=== PATIENT | female | born 1990 | race Caucasian/White ===

== ENCOUNTER 2017-09-03 08:10 | Inpatient (IN) | payer OTHER ==
[2017-09-03] MEDS ORDERED: MISOPROSTOL 200 MCG TAB PO PRN (08:34)
[2017-09-03] MEDS ORDERED: EPSOM SALT 454 GM TP PRN (08:34)
[2017-09-03] MEDS ORDERED: AMMONIA AROMATIC 1 EACH AMP IH PRN (08:34)
[2017-09-03] MEDS ORDERED: OLIVE OIL 118 ML BTL MISC PRN (08:34)
[2017-09-03] MEDS ORDERED: OXYTOCIN 20 UNIT in LR 1,000 ML IV PRN (08:34)
[2017-09-03] MEDS ORDERED: TERBUTALINE SULFATE 1 MG/ML VIAL IV PRN (08:34)
--- NOTE | 2017-09-03 09:02 | PDGENHP ---
History and Physical History and Physical: HPI: Patient is a 26 yo G 1 P 0 that presents to L&D with complaints of regular painful contractions that started at approximately 2:30 a.m. this morning. Baby has been active. She denies leaking fluid or vaginal bleeding. She was seen in the office yesterday and her cervix was essentially closed/thick/-2. She appears very uncomfortable and is jojo every 2 min. EDC: 03/12/18 which is based on LMP: 12/03/16 which is known and consistent with Ultrasound at 7 weeks. 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) Review of Systems: Constitutional: Denies any fever, chills, or fatigue HEENT: denies any visual changes, difficulty swallowing, hearing loss Cardiovascular: Denies any chest pain, palpitations, leg swelling Respiratory: denies any cough, wheezing, or shortness of breathe GI: She is having some nausea, but denies vomiting, diarrhea, constipation : denies any dysuria, urgency, frequency, vaginal bleeding Musculoskeletal: denies any muscle or bone pain Skin: denies any rashes Neuro: denies any headache, seizures, lightheadedness, dizziness, or loss of consciousness Psychiatric: denies any depression, anxiety, or SI/HI thoughts HISTORY: Previous OB history: n/a Past medical history: h/o bifed uvula, hospitalized 2010 after 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, h/o CMV 2006 Past surgical history: wisdom teeth Medications: PNV Allergies (list reaction): Sulfa-anaphylaxis, Keflex-hives LABS: Rh: pos ABS: Neg Rubella: Immune HbsAg: NR HIV: NR VDRL: NR 1hr: 104 GC: Neg Chlamydia: Neg Pap: Normal 12/08 GBS: neg BMI: (prepreg) 27 PHYSICAL EXAM: Constitutional: WN, A&Ox3 HEENT: normocephalic atraumatic, supple Heart: RRR, no murmur Chest: CTA-B Abdomen: Soft, nontender, gravid SVE: 2/80/-2 Extremities: trace edema, negative jamel's sign Neuro: grossly normal Psych: normal affect assessment: Reassuring FHTs, baseline 140s +accels, no decels, moderate variability Contractions: toco q 2-3, palpate moderate Assessment: 1) 26 yo G 1 P 0 with IUP@ 39.1 weeks EGA 2) Spontaneous labor 3) GBS neg 4) Cat 1 FHR tracing 5) Marginal cord insertion Plan: 1) Admit to L&D 2) 500 cc IV fluid bolus 3) CBC, T&S 4) Epidural PRN 5) Activity/diet as tolerated and intermittent monitoring per protocol until epidural placed 6) Anticipate
[2017-09-03] MEDS ORDERED: LIDOCAINE 1% 300 MG/30 ML SDV ONE (09:18)
[2017-09-03] MEDS ORDERED: OXYTOCIN 10 UNIT/ML VIAL ONE ×2 (09:18→15:35)
[2017-09-03] MEDS ORDERED: OLIVE OIL 118 ML BTL ONE (09:19)
[2017-09-03 09:25] LABS: PLATELET COUNT 295 10^3/uL (150-400)
[2017-09-03] MEDS ORDERED: ONDANSETRON 4 MG/2 ML VIAL IVP PRN (10:28)
[2017-09-03] MEDS ORDERED: NALOXONE HCL 0.4 MG/ML INJ IVP PRN (10:38)
--- NOTE | 2017-09-03 10:41 | PREANESOB ---
Obstetric Pre-Anesthesia Info - General Info Proposed Procedure: ENRIQUE : 1 Para: 0 LAURA: 09/09/17 Gestational Age: 39 week(s) and 1 day(s) - Info Status: Full Term FHR Pattern: Reassuring - Labor Status Cervical Dilation per last OB SVE: 3 Indications for Labor Analgesia: Pain Control Labor Epidural: Yes Anesthesia Allergies/Adverse Reactions: Allergy/AdvReac Type Severity Reaction Status Date / Time Sulfa (Sulfonamide Allergy Severe Anaphylaxis Verified 09/03/17 08:34 Antibiotics) cephalexin [From Keflex] Allergy Mild Hives Verified 09/03/17 08:34 Penicillins Allergy Hives Verified 09/03/17 09:05 Visit Medications: Generic Name Dose Route Start Last Admin Trade Name Freq PRN Reason Stop Dose Admin Ammonia (Aromatic Spirit) 1 each 09/03/17 08:34 Ammonia Aromatic IH 09/13/17 08:33 ONCE PRN Fainting Lactated Ringer's 1,000 mls @ 0 mls/hr 09/03/17 08:34 Lr IV 09/04/17 08:33 PRN PRN SEE PROTOCOL CONDITIONS Protocol Per Protocol Oxytocin 20 unit/ Lactated 1,002 mls @ 150 mls/hr 09/03/17 08:34 Ringer's IV PRN PRN Post- bleeding Ibuprofen 600 mg 09/03/17 08:34 Motrin PO 03/02/18 08:33 Q6HRS PRN post , inflammation Magnesium Sulfate 454 gm 09/03/17 08:34 Epsom Salt TP 03/02/18 08:33 Q1H PRN perineal discomfort Misoprostol 800 - 1,000 mcg 09/03/17 08:34 Cytotec PO ONCE PRN Vaginal Atony/Bleeding [place] Oil 118 ml 09/03/17 08:34 Sweet Oil MISC 03/02/18 08:33 ONCE PRN perineal massage Ondansetron HCl 4 mg 09/03/17 10:28 Zofran IVP 03/02/18 10:27 Q4HRS PRN Nausea/Vomiting, Can't Take PO Terbutaline Sulfate 0.25 mg 09/03/17 08:34 Brethine IV 03/02/18 08:33 ONCE PRN Tachysystole Discontinued Medications Generic Name Dose Route Start Last Admin Trade Name Freq PRN Reason Stop Dose Admin Lidocaine HCl Confirm 09/03/17 09:18 Lidocaine Hcl 1% Administered 09/03/17 09:19 Dose 300 mg .ROUTE .STK-MED ONE [place] Oil Confirm 09/03/17 09:19 Sweet Oil Administered 09/03/17 09:20 Dose 118 ml .ROUTE .STK-MED ONE Oxytocin Confirm 09/03/17 09:18 Pitocin Administered 09/03/17 09:19 Dose 40 unit .ROUTE .STK-MED ONE - Vital Signs Height/Weight (Nursing): Height 165.1 cm Weight 83.915 kg Labs: 09/03/17 09:13
[2017-09-03] MEDS ORDERED: fentaNYL 100 MCG/2 ML INJ ONE (10:48)
[2017-09-03] MEDS ORDERED: PHENYLEPHRINE HCL 100 MCG/ML SYR ONE (10:49)
[2017-09-03] MEDS ORDERED: BUPIVACAINE 0.25% 30 ML SDV ONE (10:49)
[2017-09-03] MEDS ORDERED: fentaNYL 200 MCG, BUPIVACAINE 0.5% 20 ML in NS 100 ML EP SCH (11:00)
[2017-09-03] MEDS ORDERED: fentaNYL 2MCG/ML/BUP 0.1% RTU 100 ML EP SCH (11:00)
[2017-09-03] MEDS ORDERED: LR 500 ML IV SCH (11:00)
--- NOTE | 2017-09-03 15:30 | OBPROG ---
Labor Progress Note Assessment/Plan: Assessment: 1) 26 yo G 1 P 0 with IUP@ 39.1 weeks EGA 2) Spontaneous labor 3) GBS neg 4) Cat 2 FHR tracing - baseline 150s, periods of minimal variability and occasional variable deceleration 5) SROM at 1300 - light blood tinged fluid 6) IUPC in place - contraction pattern inadequate- MVUs < 100 7) Cervix 4/90/-1 8) Marginal cord insertion Plan: Will start pitocin augmentation IV fluid bolus Oxygen PRN Monitor EFM closely Anticipate Reviewed strip/POC with Dr. Low 09/03/17 15:31 09/03/17 15:57 09/03/17 16:05 09/03/17 16:13 Subjective/Intrapartum Course: 09/03/17 15:31 Doing well, comfortable with epidural 09/03/17 15:57 Objective: 09/03/17 09:13 Patient ABO/Rh O POSITIVE 09/03/17 09:13 VSS Epidural - comfortable SROM lt blood tinged fluid at 1300 EFM category 2 - periods of minimal variability, occasional mild variable decels IUPC placed - Contractions q 5 min 40mm - inadequate contraction pattern - SVE Dilation (cm): 4 Effacement (%): 90 Station: -1 Membranes: SROM Amniotic Fluid Color: Clear (light blood tinged) - Contraction Pattern Assessment Current Contraction Pattern: Irregular - FHR Assessment [place] FHR (bpm): 155 FHR Pattern Variability: Moderate FHR Category: 2 (intermittent varible decel, intermittment minimal variabilty) - Procedures Non-surgical Procedures: IUPC Oxytocin Orders Assessment - Pre-Induction/Augmentation Assessment Gestational Age: 39 week(s) and 1 day(s) ICD10 Worksheet Patient Problems: Problems Problem Status Onset Acute - ICD10 Problem Qualifiers (1) Qualifiers: Weeks of gestation: 39 weeks Qualified Code(s): Z3A.39 - 39 weeks gestation of
[2017-09-03] MEDS ORDERED: OXYTOCIN 30 UNIT in NS 500 ML IV SCH (19:30)
[2017-09-03] MEDS ORDERED: LR 500 ML IV PRN (19:30)
[2017-09-03] MEDS: LR 1,000 ML IV PRN (20:23)
--- NOTE | 2017-09-03 20:44 | OBPROG ---
Labor Progress Note Assessment/Plan: Assessment: 1) 26 yo G 1 P 0 with IUP@ 39.1 weeks EGA 2) Spontaneous labor with pitocin augmentation 3) GBS neg 4) Cat 2 FHR tracing - FHR baseline 170s, mod variability, intermittent mild variables 5) SROM at 1300 - light blood tinged fluid 6) IUPC in place -MVUs 160-180 7) Cervix 4-5/90/-1 8) Marginal cord insertion Plan: Continue pitocin augmentation IV fluid bolus 500 cc Monitor EFM closely Expect accelerated cervical change now with adequate labor Anticipate Reviewed strip/POC with Dr. Low 09/03/17 15:31 09/03/17 15:57 09/03/17 16:05 09/03/17 16:13 09/03/17 20:39 Subjective/Intrapartum Course: 09/03/17 15:31 Resting at intervals, remains comfortable with epidural 09/03/17 15:57 09/03/17 20:44 Objective: 09/03/17 09:13 Patient ABO/Rh O POSITIVE 09/03/17 09:13 VSS - afebrile, HR 80s Pitocin 13 mu EFM category 2 - baseline 170s, mod variability, intermittent mild variables IUPC: MVUs 160-180 SVE: 4-5/80/-1 - SVE Dilation (cm): 5 Effacement (%): 80 Station: -1 Membranes: SROM Amniotic Fluid Color: Clear (light blood tinged) - Contraction Pattern Assessment Current Contraction Pattern: Regular - FHR Assessment [place] FHR (bpm): 170 FHR Pattern Variability: Moderate FHR Category: 2 (FHT baseline 170s, mod variability, occasional variable decel) - Procedures Non-surgical Procedures: IUPC Oxytocin Orders Assessment - Pre-Induction/Augmentation Assessment Gestational Age: 39 week(s) and 1 day(s) ICD10 Worksheet Patient Problems: Problems Problem Status Onset Acute - ICD10 Problem Qualifiers (1) Qualifiers: Weeks of gestation: 39 weeks Qualified Code(s): Z3A.39 - 39 weeks gestation of
--- NOTE | 2017-09-03 22:43 | OBPROG ---
Labor Progress Note Assessment/Plan: Assessment: 26 y/o @ 39 1/7 wks with arrest of dilation and tachycardia Plan: Pt has not made much cervical change despite adequate labor over the past 4 hours, still about 5 cm FHTs - tachycardia in 170-180's noted, pt is afebrile Discussed proceeding with PCS secondary to arrest of dilation and tachycardia Surgical consents obtained; discussed R/B/A with pt including but not limited to bleeding, infection and damage to surrounding organs Pt understands all risks and wants to proceed with surgery at this time Abx hazard mitigation officer to OR - pt is allergic to PCN, will given Clindamycin SCD's for DVT prophylaxis 09/03/17 22:44 Subjective/Intrapartum Course: 09/03/17 15:31 Resting at intervals, remains comfortable with epidural 09/03/17 15:57 09/03/17 20:44 09/03/17 22:48 Pt comfortable with epidural no complaints. Objective: 09/03/17 09:13 Patient ABO/Rh O POSITIVE 09/03/17 09:13 - SVE Dilation (cm): 5 Effacement (%): 90 Station: -1 Membranes: SROM Amniotic Fluid Color: Clear (light blood tinged) - Contraction Pattern Assessment Current Contraction Pattern: Regular - FHR Assessment [place] FHR (bpm): 170 FHR Pattern Variability: Moderate FHR Category: 2 (intermittent variable decels) - Procedures Non-surgical Procedures: IUPC - AP Antepartum Course: Oxytocin Orders Assessment - Pre-Induction/Augmentation Assessment Gestational Age: 39 week(s) and 1 day(s) ICD10 Worksheet Patient Problems: Problems Problem Status Onset Acute
[2017-09-03] MEDS ORDERED: CLINDAMYCIN 900 MG/DEXTROSE 50 ML IV ONE (22:50)
--- NOTE | 2017-09-03 23:04 | PREANESOB ---
Obstetric Pre-Anesthesia Info - General Info : 1 Para: 0 LAURA: 09/09/17 Gestational Age: 39 week(s) and 1 day(s) - Info Status: Full Term - Labor Status Cervical Dilation per last OB SVE: 5 Station per last OB SVE: -1 Amniotic Fluid Color: Clear (light blood tinged) Indications for Labor Analgesia: Pain Control Indications for Current Section: Arrest of Dilation Labor Epidural: Yes Anesthesia Allergies/Adverse Reactions: Allergy/AdvReac Type Severity Reaction Status Date / Time Sulfa (Sulfonamide Allergy Severe Anaphylaxis Verified 09/03/17 08:34 Antibiotics) cephalexin [From Keflex] Allergy Mild Hives Verified 09/03/17 08:34 Penicillins Allergy Hives Verified 09/03/17 09:05 Visit Medications: Generic Name Dose Route Start Last Admin Trade Name Freq PRN Reason Stop Dose Admin Ammonia (Aromatic Spirit) 1 each 09/03/17 08:34 Ammonia Aromatic IH 09/13/17 08:33 ONCE PRN Fainting Lactated Ringer's 1,000 mls @ 0 mls/hr 09/03/17 08:34 09/03/17 20:23 Lr IV 09/04/17 08:33 1,000 mls PRN PRN Administration SEE PROTOCOL CONDITIONS Protocol Per Protocol Oxytocin 20 unit/ Lactated 1,002 mls @ 150 mls/hr 09/03/17 08:34 Ringer's IV PRN PRN Post- bleeding Lactated Ringer's 500 mls @ 0 mls/hr 09/03/17 11:00 Lr IV 03/02/18 10:59 CONT JANETH As Directed Fentanyl 200 mcg/ Bupivacaine 100 mls @ 0 mls/hr 09/03/17 11:00 09/03/17 21: 30 HCl 20 ml/ Sodium Chloride EP 09/13/17 10:59 100 mls CONT JANETH Administration Protocol As Directed Lactated Ringer's 500 mls @ 500 mls/hr 09/03/17 19:30 Lr IV 09/04/17 19:30 PRN PRN Maternal Hypotension Oxytocin 30 unit/ Sodium 503 mls @ 0 mls/hr 09/03/17 19:30 09/03/17 15:46 Chloride IV 03/02/18 19:29 503 mls CONT JANETH Administration Protocol Per Protocol Clindamycin Phosphate/Dextrose 50 mls @ 100 mls/hr 09/03/17 22:50 Cleocin 900 Mg (Premix) IV 09/03/17 23:19 ONCALL ONE Protocol Clindamycin Phosphate/Dextrose 50 mls @ 100 mls/hr 09/03/17 23:15 Cleocin 600 Mg (Premix) IV 09/03/17 23:44 ONCALL ONE Ibuprofen 600 mg 09/03/17 08:34 Motrin PO 03/02/18 08:33 Q6HRS PRN post , inflammation Magnesium Sulfate 454 gm 09/03/17 08:34 Epsom Salt TP 03/02/18 08:33 Q1H PRN perineal discomfort Misoprostol 800 - 1,000 mcg 09/03/17 08:34 Cytotec PO ONCE PRN Vaginal Atony/Bleeding Naloxone HCl 0.4 mg 09/03/17 10:38 Narcan IVP 03/02/18 10:37 PRN PRN Respiratory depression [place] Oil 118 ml 09/03/17 08:34 Sweet Oil MISC 03/02/18 08:33 ONCE PRN perineal massage Ondansetron HCl 4 mg 09/03/17 10:28 09/03/17 10:50 Zofran IVP 03/02/18 10:27 4 mg Q4HRS PRN Administration Nausea/Vomiting, Can't Take PO Terbutaline Sulfate 0.25 mg 09/03/17 08:34 Brethine IV 03/02/18 08:33 ONCE PRN Tachysystole Discontinued Medications Generic Name Dose Route Start Last Admin Trade Name Freq PRN Reason Stop Dose Admin Bupivacaine HCl Confirm 09/03/17 10:49 Sensorcaine 0.25% Sdv Administered 09/03/17 10:50 Dose 30 ml .ROUTE .STK-MED ONE Fentanyl Confirm 09/03/17 10:48 Sublimaze Administered 09/03/17 10:49 Dose 100 mcg .ROUTE .STK-MED ONE Lidocaine HCl Confirm 09/03/17 09:18 Lidocaine Hcl 1% Administered 09/03/17 09:19 Dose 300 mg .ROUTE .STK-MED ONE [place] Oil Confirm 09/03/17 09:19 Sweet Oil Administered 09/03/17 09:20 Dose 118 ml .ROUTE .STK-MED ONE Oxytocin Confirm 09/03/17 09:18 Pitocin Administered 09/03/17 09:19 Dose 40 unit .ROUTE .STK-MED ONE Oxytocin Confirm 09/03/17 15:35 Pitocin Administered 09/03/17 15:36 Dose 30 unit .ROUTE .STK-MED ONE Phenylephrine HCl Confirm 09/03/17 10:49 Neosynephrine Administered 09/03/17 10:50 Dose 1,000 mcg .ROUTE .STK-MED ONE - Anesthesia History Response to Local Anesthetics: Normal Anesthesia & Operative History: No Prior Problems Family Anesthesia History: Not Applicable - Vital Signs Latest Vital Signs (Nursing): Temp Pulse Resp BP Pulse Ox 37.3 C 92 132/87 H 96 09/03/17 22:46 09/03/17 22:46 09/03/17 22:46 09/03/17 22:46 Height/Weight (Nursing): Height 165.1 cm Weight 83.915 kg - Focused Exam Neck exam: FROM Mallampati Score: Class 2 Mouth exam: normal dental/mouth exam Pulmonary: no respiratory distress Cardiovascular: regular rate and rhythym Labs: 09/03/17 09:13 Patient ABO/Rh O POSITIVE 09/03/17 09:13 - Plan Anesthetic Plan: C/S w/ lidocaine in epidural, backup is general anesthesia Consent Signed and on Chart: Yes Patient/Guardian Understands and Agrees to Plan: Yes
[2017-09-03] MEDS ORDERED: PROPOFOL 200 MG/20 ML VIAL ONE (23:14)
[2017-09-03] MEDS ORDERED: CLINDAMYCIN 600 MG/DEXTROSE 50 ML IV ONE (23:15)
[2017-09-04] MEDS ORDERED: morphINE PF 5 MG/10 ML INJ ONE (00:02)
[2017-09-04] MEDS ORDERED: fentaNYL 100 MCG/2 ML INJ ONE (00:10)
[2017-09-04] MEDS ORDERED: MAGNESIUM HYDROXIDE 30 ML UDCUP PO PRN (00:32)
[2017-09-04] MEDS ORDERED: POLYETHYLENE GLYCOL 3350 17 GM PKT PO PRN (00:32)
[2017-09-04] MEDS ORDERED: DOCUSATE SODIUM 100 MG CAP PO PRN (00:32)
[2017-09-04] MEDS ORDERED: BISACODYL 10 MG SUPP PR PRN (00:32)
[2017-09-04] MEDS ORDERED: PROMETHAZINE HCL 25 MG/ML INJ IVP PRN (00:32)
[2017-09-04] MEDS ORDERED: SIMETHICONE 80 MG TAB CHEW PO PRN (00:32)
[2017-09-04] MEDS ORDERED: LACTULOSE 20 GM/30 ML UDCUP PO PRN (00:32)
--- NOTE | 2017-09-04 00:38 | OBDEL ---
Info Type: Primary Presentation at Delivery: Vertex L&D Analgesia/Anesthesia Type: Epidural GBS+: No Intrapartum Medications: Generic Name Dose Route Start Last Admin Trade Name Freq PRN Reason Stop Dose Admin Lactated Ringer's 1,000 mls @ 0 mls/hr 09/03/17 08:34 09/03/17 20:23 Lr IV 09/04/17 08:33 1,000 mls PRN PRN Administration SEE PROTOCOL CONDITIONS Protocol Per Protocol Fentanyl 200 mcg/ Bupivacaine 100 mls @ 0 mls/hr 09/03/17 11:00 09/03/17 21: 30 HCl 20 ml/ Sodium Chloride EP 09/13/17 10:59 100 mls CONT JANETH Administration Protocol As Directed Oxytocin 30 unit/ Sodium 503 mls @ 0 mls/hr 09/03/17 19:30 09/03/17 15:46 Chloride IV 03/02/18 19:29 503 mls CONT JANETH Administration Protocol Per Protocol Ondansetron HCl 4 mg 09/03/17 10:28 09/03/17 10:50 Zofran IVP 03/02/18 10:27 4 mg Q4HRS PRN Administration Nausea/Vomiting, Can't Take PO Discontinued Medications Generic Name Dose Route Start Last Admin Trade Name Freq PRN Reason Stop Dose Admin Clindamycin Phosphate/Dextrose 50 mls @ 100 mls/hr 09/03/17 23:15 09/03/17 23 :15 Cleocin 600 Mg (Premix) IV 09/03/17 23:44 50 mls ONCALL ONE Administration - Infant Care Provider Application Tester/AIRCRAFT RIVETER: Eula [place] - [facility] Course Intrapartum: 09/03/17 15:31 Resting at intervals, remains comfortable with epidural 09/03/17 15:57 09/03/17 20:44 09/03/17 22:48 Pt comfortable with epidural no complaints. Indications for Delivery: Spontaneous Labor Vaginal Delivery - Labor and Delivery Onset of Contractions Date: 09/03/17 Onset of Contractions Time: 02:30 Amniotic Fluid Color: Clear (light blood tinged) Non-surgical Procedures: IUPC Cord Gases: Cord Gases Cord Blood PCO2 TNP 09/03/17 23:50 Cord Base Excess TNP 09/03/17 23:50 Cord ABG pH TNP 09/03/17 23:50 Cord VBG pH 7.31 (7.20-7.42) 09/03/17 23:50 Operative Report - Delivery Pre-op Diagnoses: IUP at 39 2/7 wks with arrest of dilation and tachycardia Post-op Diagnoses: IUP at 39 2/7 wks with arrest of dilation and tachycardia History of Prior Section: No Nulliparous Prior to Delivery: No Indications for Current Section: Arrest of Dilation, Other (Specify) ( tachycardia) Procedure: Low Transverse Surgeon: Lisy Low Blanching Machine Operator: Shelley Yao Anesthesiologist: Larry France Complications: None Findings: A viable female born at 2350 in cephalic presentation-NOY with compound presentation, with 8 and 9 Apgars weighing 7lb 15oz. Delayed cord clamping x 60 seconds. Cord clamped x 2 and cut. Infant to waiting AIRCRAFT RIVETER. Cord blood and cord gases obtained. Placenta delivered manually intact with 3-vc. No complications. Specimen(s)/Path: Other (Specify) (None) IV Fluid (ml): 1,200 EBL: 800cc UO: 200 cc-clear urine Cord Gases: Cord Gases Cord Blood PCO2 TNP 09/03/17 23:50 Cord Base Excess TNP 09/03/17 23:50 Cord ABG pH TNP 09/03/17 23:50 Cord VBG pH 7.31 (7.20-7.42) 09/03/17 23:50 Data LAURA: 09/09/17 Gestational Age: 39 week(s) and 2 day(s) [place] Delivery Date: 09/04/17 Delivery Time: 23:50 Sex of Infant: Female Weight (gm): 3600.389 g Score (1 Min): 8 Score (5 Min): 9 ICD10 Worksheet Patient Problems: Problems Problem Status Onset Arrest of dilation, delivered, current hospitalization Acute Acute Status post primary low transverse section Acute - ICD10 Problem Qualifiers (1) Arrest of dilation, delivered, current hospitalization (2) Status post primary low transverse section
[2017-09-04] MEDS ORDERED: fentaNYL 100 MCG/2 ML INJ IVP PRN (00:39)
[2017-09-04] MEDS ORDERED: NALOXONE HCL 0.4 MG/ML INJ IVP PRN (00:39)
[2017-09-04] MEDS ORDERED: PHENYLEPHRINE HCL 100 MCG/ML SYR IVP PRN (00:39)
[2017-09-04] MEDS ORDERED: HYDROmorphONE/DILAUDID 2 MG/ML INJ IVP PRN (00:39)
[2017-09-04] MEDS ORDERED: ONDANSETRON 4 MG/2 ML VIAL IVP PRN (00:39)
--- NOTE | 2017-09-04 00:39 | POSTANESTH ---
Post Anesthetic Evaluation Cardiovascular Status: Normal, Stable, Similar to Pre-Op Cond Respiratory Status: Normal, Stable, Similar to Pre-op Cond. Level of Consciousness/Mental Status: Can Participate in Eval, Alert and Oriented Pain Control: Adequate, Prn Tx Ordered Nausea/Vomiting Control: Adequate, Prn Tx Ordered Complications Possibly Related to Anesthesia: None Noted
[2017-09-04] MEDS ORDERED: KETOROLAC 30 MG/1 ML SDV ONE (00:41)
[2017-09-04] MEDS ORDERED: ACETAMINOPHEN 500 MG TAB PO PRN (02:28)
--- NOTE | 2017-09-04 05:18 | GOP ---
[f rep st] OPERATIVE REPORT DATE OF OPERATION: 09/04/2017 SURGEON: Lisy Low DO MUSIC VIDEO PRODUCER: ZURI Lee ANESTHESIA: Epidural. ANESTHESIOLOGIST: Michael France. PREOPERATIVE DIAGNOSIS: 1. Intrauterine at 39 weeks and 2 days in active labor, second stage. 2. Arrest of dilation. 3. tachycardia. POSTOPERATIVE DIAGNOSIS: 1. Intrauterine at 39-2/7 weeks in active labor, second stage. 2. Arrest of dilation. 3. tachycardia. PROCEDURE PERFORMED: Primary low transverse section. FINDINGS: Viable female born at 2350 in cephalic presentation, NOY, with a compound presentation. with 8 and 9 Apgars, weighing 7 pounds 15 ounces. Delayed cord clamping x60 seconds. Cord clamped x2 and then cut. Infant handed to waiting nurse practitioner. Cord blood and cord gases were obtained. Placenta delivered manually intact with 3-vessel cord. Grossly normal appearing uterus, tubes, and ovaries bilaterally. No complications. ESTIMATED BLOOD LOSS: 800 cc. INDICATIONS: The patient is a 26-year-old 1, para 0, at 39 weeks and 2 days, who presented in active labor. Despite adequate contractions, no further cervical dilation beyond 5 cm. On the monitor, the baby was tachycardic for several hours. Mom was afebrile. Discussed proceeding with a primary C- section secondary to arrest of dilation and tachycardia. Surgical consents were obtained. We discussed risks, benefits, and alternatives, including, but not limited to, bleeding, infection, and damage to surrounding organs. The patient understands all risks of surgery, and wants to proceed at this time. Patient was properly consented. DESCRIPTION OF PROCEDURE: The patient was brought to the operating room with a orozco catheter in place where epidural anesthesia was bolused. The patient was then placed in supine position on the operating room table and rolled to her left side with a wedge. Abdomen was prepped and draped in the usual standard fashion. After adequate anesthesia was assured, a Pfannenstiel skin incision was made with the knife. The incision was carried down to the underlying fascia using a Bovie. The fascia was then excised in the midline and the incision extended laterally with curved [place] scissors. The rectus fascia was then grasped both superiorly and inferiorly with Ghanshyam clamps and the rectus muscles were dissected off sharply. The rectus muscles were in the midline and the peritoneum was then entered bluntly. The peritoneal incision was then extended anteriorly and posteriorly with good visualization of the bladder. The bladder blade was then inserted and the vesicouterine fascia was then grasped with pick-ups and entered sharply with Metzenbaum scissors. The incision was extended laterally and bladder flap was created digitally. With the scalpel, a low transverse hysterotomy was done. was then delivered without difficulty. Cord clamping was delayed for 60 seconds. Cord was then clamped x2, cut, and infant handed off to awaiting nurse practitioner. Cord blood as well as cord gases were obtained. Cord gases revealed normal value. VBG was 7.3. The placenta was then removed manually, intact with a 3- vessel cord. Uterus was then exteriorized,and cleared of all clots and debris. The uterine incision was then closed in 2 layers using 0 Vicryl suture. There was noted to be some oozing from the uterine incision so a [id number] stitch was placed. The uterus was then returned to the abdomen. The gutters were cleared of all debris and clots. We then inspected the uterine incision, there was noted to be a minimal amount of oozing. Elio was placed at this time and hemostasis was achieved. Attention was then turned to closure of the muscles. They were reapproximated in an inverted mattress fashion with 3-0 Vicryl. The fascia was then closed in a running fashion with 0 Vicryl. Hemostasis was noted. The skin was then closed with subcuticular suture of 4-0 Vicryl. The patient tolerated the procedure well. No complications. All sponge, instrument, and needle counts correct x2. The patient was then moved to the recovery room in stable condition with Orozco catheter draining clear urine. COMPLICATIONS: None. IV FLUIDS: 1200 cc LR. URINE OUTPUT: 200 cc of clear urine at the end of the procedure. /[id number]/MODL MTDD
[2017-09-04] MEDS ORDERED: KETOROLAC 30 MG/1 ML SDV IVP SCH (06:00)
[2017-09-04 06:10] LABS: PLATELET COUNT 213 10^3/uL (150-400)
[2017-09-04] MEDS: KETOROLAC 30 MG/1 ML SDV IVP SCH ×3 (07:26→19:53)
[2017-09-04] MEDS: LR 1,000 ML IV PRN (07:30)
[2017-09-04] MEDS: SENNOSIDES/DOCUSATE SODIUM TAB PO SCH ×2 (09:25→19:54)
--- NOTE | 2017-09-04 13:23 | OBPP ---
Progress Note Assessment/Plan: Assessment: 26 yo now , POD1 (technically, she delivered at 2350 last night) s/p PLTCS for arrest of dilation. Plan: Routine advancements today - orozco out, fluids off, encourage ambulation. Bandage can come off this evening and she can shower - even if a few hours before 24 hrs postop. Likely home Saturday. 09/04/17 22:52 09/04/17 22:53 Subjective/ Course: 09/04/17 22:50 Spoke with Anne and her partner this AM - tired from not much sleep over their first night. Still on IVF and orozco still in place. Overall pain well controlled. going okay, little frustrating. Tolerating small amount of diet. Has not been up and around much. Objective: 09/04/17 06:00 Patient ABO/Rh O POSITIVE 09/03/17 09:13 Temp Pulse Resp BP Pulse Ox 36.3 C 61 18 97/62 L 96 09/04/17 08:00 09/04/17 08:00 09/04/17 08:00 09/04/17 08:00 09/04/17 08:00 Uterine Position/Fundal Height: At Umbilicus Uterine Tone: Firm Physical Exam - Physical Exam General Appearance: alert, no apparent distress Abdomen: non-tender, soft, incision (Bandage in place with 2-3 inches shadowing central aspect, not wet/bright red)
--- NOTE | 2017-09-04 19:24 | POSTANESTH ---
Post Anesthetic Evaluation Cardiovascular Status: Normal, Stable Respiratory Status: Normal, Stable Level of Consciousness/Mental Status: Moderately Sleepy Pain Control: Adequate, Prn Tx Ordered Nausea/Vomiting Control: Adequate, Prn Tx Ordered Complications Possibly Related to Anesthesia: None Noted (No headache. No back pain)
[2017-09-05] MEDS: HYDROCODONE/APAP 5/325 TAB PO PRN ×6 (01:57→22:58)
[2017-09-05] MEDS: IBUPROFEN 600 MG TAB PO PRN ×4 (02:06→21:04)
[2017-09-05] MEDS: SENNOSIDES/DOCUSATE SODIUM TAB PO SCH ×2 (08:25→21:04)
--- NOTE | 2017-09-05 10:13 | OBPP ---
Progress Note Assessment/Plan: Assessment: 26 y/o POD #1.5 s/p LTCS secondary to arrest of dilation doing well. Plan: Bifera BID started today. support, bowel protocol and routine POC. 09/05/17 10:13 Subjective/ Course: 09/04/17 22:50 Spoke with Anne and her partner this AM - tired from not much sleep over their first night. Still on IVF and orozco still in place. Overall pain well controlled. going okay, little frustrating. Tolerating small amount of diet. Has not been up and around much. 09/05/17 10:09 Pt is doing much better today. She has good pain control with scheduled po meds. She is ambulating and voiding without difficulty and has min lochia. She is tolerating reg diet and has a good appetite. Breast feeding is challenging, they feel baby may be "tongue tied", but she is persistent and her nipples are ok. She showered yesterday and did well. Objective: 09/05/17 05:55 Patient ABO/Rh O POSITIVE 09/03/17 09:13 Temp Pulse Resp BP Pulse Ox 36.6 C 88 16 106/70 96 09/05/17 08:15 09/05/17 08:15 09/05/17 08:15 09/05/17 08:15 09/05/17 08:15 Uterine Position/Fundal Height: Umbilicus -2 Uterine Tone: Firm Physical Exam - Physical Exam General Appearance: alert, no apparent distress Neck: non-tender, full range of motion, supple Respiratory: chest non-tender, lungs clear, normal breath sounds Cardiac/Chest: regular rate, rhythm Abdomen: normal bowel sounds Extremities: swelling (no), Nancy's sign (neg)
[2017-09-05] MEDS: IRON POLYSAC/IRON HEME 28 MG TAB PO SCH (21:04)
[2017-09-05] MEDS: KETOROLAC 30 MG/1 ML SDV IVP SCH (22:08)
[2017-09-06] MEDS: HYDROCODONE/APAP 5/325 TAB PO PRN ×4 (03:16→19:30)
[2017-09-06] MEDS: IBUPROFEN 600 MG TAB PO PRN ×4 (03:16→23:36)
--- NOTE | 2017-09-06 09:39 | OBPP ---
Progress Note Assessment/Plan: Assessment: 26 year old G1 now P1, POD#3 s/p primary LTCS c/b hemorrhage. Mildly symptomatic anemia. Plan:Anticipate dc home tomorrow. Will send RX for [place] and Ibuprofen to be filled today so they will be ready for discharge tomorrow. Continue iron supplementation 09/06/17 09:34 09/06/17 09:43 Subjective/ Course: 09/04/17 22:50 Spoke with Anne and her partner this AM - tired from not much sleep over their first night. Still on IVF and orozco still in place. Overall pain well controlled. going okay, little frustrating. Tolerating small amount of diet. Has not been up and around much. 09/05/17 10:09 Pt is doing much better today. She has good pain control with scheduled po meds. She is ambulating and voiding without difficulty and has min lochia. She is tolerating reg diet and has a good appetite. Breast feeding is challenging, they feel baby may be "tongue tied", but she is persistent and her nipples are ok. She showered yesterday and did well. 09/06/17 09:39 Doing well today. She and her partner were both able to get a little sleep last night. Is ambulating without any lightheadedness or dizziness. Pain is well controlled with po meds. She is tolerating a regular diet, passing flatus. Still working on - still challenging. Objective: 09/05/17 05:55 Patient ABO/Rh O POSITIVE 09/03/17 09:13 Temp Pulse Resp BP Pulse Ox 36.5 C 85 16 113/72 97 09/06/17 08:15 09/06/17 08:15 09/06/17 08:15 09/06/17 08:15 09/06/17 08:15 Gen - pleasant, NAD CV - RRR chest - CTAB abd - soft, +NABS, fundus NT at u-2 ext - 1+ edema, no calf tenderness Uterine Position/Fundal Height: Umbilicus -1, Umbilicus -2 Uterine Tone: Firm
[2017-09-06] MEDS: SENNOSIDES/DOCUSATE SODIUM TAB PO SCH ×2 (11:30→19:30)
[2017-09-06] MEDS: IRON POLYSAC/IRON HEME 28 MG TAB PO SCH ×2 (11:30→19:30)
[2017-09-06 22:04] VITALS: O2SAT 96
[2017-09-07] MEDS: IBUPROFEN 600 MG TAB PO PRN (05:35)
[2017-09-07] MEDS: HYDROCODONE/APAP 5/325 TAB PO PRN ×2 (05:39→10:28)
[2017-09-07 08:48] VITALS: BP 119/78; PULSE 103; RESP 17; TEMP 97
--- NOTE | 2017-09-07 09:28 | OBPP ---
Progress Note Assessment/Plan: Assessment: without difficulty nipples intact pain well managed ff@u scant rubra lochia incision well approximated no ss of infection passing gas has had 2 bm voiding without difficulty ambulating without difficulty Plan:discharge to home with instructions fu 2 weeks 4 weeks and 6 weeks pain management, depression, bleeding patterns, exercise, , pelvic rest , contraception, rest, ss infection verbalized understanding of all of the above 09/07/17 09:24 Subjective/ Course: 09/04/17 22:50 Spoke with Anne and her partner this AM - tired from not much sleep over their first night. Still on IVF and orozco still in place. Overall pain well controlled. going okay, little frustrating. Tolerating small amount of diet. Has not been up and around much. 09/05/17 10:09 Pt is doing much better today. She has good pain control with scheduled po meds. She is ambulating and voiding without difficulty and has min lochia. She is tolerating reg diet and has a good appetite. Breast feeding is challenging, they feel baby may be "tongue tied", but she is persistent and her nipples are ok. She showered yesterday and did well. 09/06/17 09:39 Doing well today. She and her partner were both able to get a little sleep last night. Is ambulating without any lightheadedness or dizziness. Pain is well controlled with po meds. She is tolerating a regular diet, passing flatus. Still working on - still challenging. 09/07/17 09:23 Doing well denies difficulties ready to go home Objective: 09/05/17 05:55 Patient ABO/Rh O POSITIVE 09/03/17 09:13 Temp Pulse Resp BP Pulse Ox 36.1 C 103 H 17 119/78 96 09/07/17 08:30 09/07/17 08:30 09/07/17 08:30 09/07/17 08:30 09/07/17 08:30 Uterine Position/Fundal Height: At Umbilicus Uterine Tone: Firm Physical Exam - Physical Exam General Appearance: WD/WN, alert, no apparent distress Respiratory: chest non-tender, lungs clear, normal breath sounds Cardiac/Chest: regular rate, rhythm Abdomen: normal bowel sounds Extremities: normal range of motion, Nancy's sign (negative bilaterally) DTR- Lower Extremities: Knee (R): 1+, Knee (L): 1+ (no clonus) Skin: normal color, warm/dry Neuro/Psych: no motor/sensory deficits, alert, normal mood/affect, oriented x 3
[2017-09-07] MEDS: IRON POLYSAC/IRON HEME 28 MG TAB PO SCH (10:28)
[2017-09-07] MEDS: SENNOSIDES/DOCUSATE SODIUM TAB PO SCH (10:29)
[2017-09-08] MEDS ORDERED: PRENATAL VIT 1 EACH TAB PO SCH (08:00)
== END 2017-09-07 11:45 | disposition home or self-care (01) | DRG 765 ==
LOC: FLD 08:10 → FOB 09-04 03:25
PROVIDERS: ADMIT Advanced Practice Midwife; ATTEND Obstetrics & Gynecology
PROC: 10D00Z1 Extraction of Products of Conception, Low, Open Approach (ICD-10-PCS; principal; 2017-09-03)
DX: O62.0 Primary inadequate contractions (principal); O76 Abnormality in fetal heart rate and rhythm complicating labor and delivery; O99.113 Other diseases of the blood and blood-forming organs and certain disorders involving the immune mechanism complicating pregnancy, third trimester; D56.3 Thalassemia minor; O32.6XX0 Maternal care for compound presentation, not applicable or unspecified; O43.193 Other malformation of placenta, third trimester; Z3A.39 39 weeks gestation of pregnancy; Z37.0 Single live birth
CPT/HCPCS: J1885; J2274; J2370; J2405; J2590; J2704; J3010